=== PATIENT | male | born 1975 | race African-American/Black ===

== ENCOUNTER 2018-02-18 14:00 | Emergency (ER) | payer SELFPAY ==
--- NOTE | 2018-02-18 15:24 | EDPHYS ---
Physician Documentation [facility] Name: Flaco Goins Age: 42 yrs Sex: Male : 1975 Arrival Date: 02/18/2018 Time: 14:04 Bed 12 Private MD: None, None ED Physician Deshawn Peguero HPI: 02/18 15:21 This 42 yrs old Black Male presents to ER via Ambulatory with complaints of Eye rn Swelling. 15:21 The patient is experiencing redness, The patient sustained None. to the left eye. rn Onset: The symptoms/episode began/occurred 2 month(s) ago. Duration: the symptoms are continuous. Severity of symptoms: At their worst the symptoms were very mild in the emergency department the symptoms are unchanged. The patient has not experienced similar symptoms in the past. The patient has not recently seen a physician. Historical: - Allergies: 14:07 No Known Allergies; sv - Home Meds: 14:07 Lisinopril Oral [Active]; sv - PMHx: 14:07 Hypertension; sv - PSHx: 14:07 None; sv - Immunization history:: Adult Immunizations up to date. - Social history:: Smoking status: Patient uses tobacco products, denies chronic smoking, but will smoke occasionally. - Ebola Screening: : No symptoms or risks identified at this time. - Family history:: not pertinent. - Hospitalizations: : No recent hospitalization is reported. ROS: 15:21 Constitutional: Negative for fever, chills, and weight loss, Eyes: + swelling of left rn inner-upper eyelid Exam: 15:21 Constitutional: This is a well developed, well nourished patient who is awake, alert, rn and in no acute distress. Eyes: Pupils equal round and reactive to light, extra-ocular motions intact. Conjunctiva and sclera are non-icteric and not injected. Cornea within normal limits. + hordeolum left upper lid Vital Signs: 14:08 BP 120 / 75; Pulse 70; Resp 18; Temp 97.6; Pulse Ox 99% ; Weight 81.65 kg; Height 6 ft. sv 1 in. (185.42 cm); Pain 2/10; 14:08 Body Mass Index 23.75 (81.65 kg, 185.42 cm) sv MDM: 15:10 Patient medically screened. rn 15:21 Differential diagnosis: hordeolum. Data reviewed: vital signs, nurses notes, and as a rn result, I will discharge patient. Counseling: I had a detailed discussion with the patient and/or guardian regarding: the historical points, exam findings, and any diagnostic results supporting the discharge/admit diagnosis, the need for outpatient follow up, to return to the emergency department if symptoms worsen or persist or if there are any questions or concerns that arise at home. Special discussion: I discussed with the patient/guardian in detail that at this point there is no indication for admission to the hospital. It is understood, however, that if the symptoms persist or worsen the patient needs to return immediately for re-evaluation. Based on the history and exam findings, there is no indication for further emergent testing or inpatient evaluation. I discussed with the patient/guardian the need to see the opthamologist for further evaluation of the symptoms. Administered Medications: No medications were administered Disposition: 02/18/18 15:24 Discharged to Home. Impression: Hordeolum and chalazion. - Condition is Stable. - Discharge Instructions: Chalazion. - Prescriptions for Erythromycin 5 mg/gram (0.5 %) Ophthalmic Ointment - apply 1 ribbon by OPHTHALMIC route every 8 hours; 1 tube. - Medication Reconciliation Form, Thank You Letter, Antibiotic Education, Prescription Opioid Use form. - Follow up: Cat Quezada MD; When: As needed; Reason: Recheck today's complaints, Re-evaluation by your physician. - Problem is an ongoing problem. - Symptoms are unchanged. Signatures: Rubi Mack RN RN sv Nieto, Roman, MD MD rn Barnett, Mark, RN RN mb3 Corrections: (The following items were deleted from the chart) 15:33 15:24 02/18/2018 15:24 Discharged to Home. Impression: Hordeolum and chalazion. mb3 Condition is Stable. Forms are Medication Reconciliation Form, Thank You Letter, Antibiotic Education, Prescription Opioid Use. Follow up: Cat Quezada; When: As needed; Reason: Recheck today's complaints, Re-evaluation by your physician. Problem is an ongoing problem. Symptoms are unchanged. rn
--- NOTE | 2018-02-18 15:24 | ER ---
Nurse's Notes [facility] Name: Flaco Goins Age: 42 yrs Sex: Male : 1975 Arrival Date: 02/18/2018 Time: 14:04 Bed 12 Private MD: None, None Diagnosis: Hordeolum and chalazion Presentation: 02/18 14:06 Presenting complaint: Patient states: left eye "bump" for a few months. Transition of sv care: patient was not received from another setting of care. Onset of symptoms was November 2017. Care prior to arrival: None. 14:06 Method Of Arrival: Ambulatory sv 14:06 Acuity: FITO 5 sv 15:04 Risk Assessment: Do you want to hurt yourself or someone else? Patient reports no mb3 desire to harm self or others. Initial Sepsis Screen: Does the patient meet any 2 criteria? No. Patient's initial sepsis screen is negative. Does the patient have a suspected source of infection? No. Patient's initial sepsis screen is negative. Historical: - Allergies: 14:07 No Known Allergies; sv - Home Meds: 14:07 Lisinopril Oral [Active]; sv - PMHx: 14:07 Hypertension; sv - PSHx: 14:07 None; sv - Immunization history:: Adult Immunizations up to date. - Social history:: Smoking status: Patient uses tobacco products, denies chronic smoking, but will smoke occasionally. - Ebola Screening: : No symptoms or risks identified at this time. - Family history:: not pertinent. - Hospitalizations: : No recent hospitalization is reported. Screenin:04 Abuse screen: Denies threats or abuse. Nutritional screening: No deficits noted. mb3 Tuberculosis screening: No symptoms or risk factors identified. Fall Risk None identified. Assessment: 15:03 General: Appears in no apparent distress. comfortable, Behavior is calm, cooperative, mb3 appropriate for age. Pain: Denies pain. Neuro: No deficits noted. Cardiovascular: No deficits noted. Respiratory: No deficits noted. GI: No deficits noted. No signs and/or symptoms were reported involving the gastrointestinal system. EENT: Eyes left inner eye lid has place on it that is swollen, pt states have had it for over 1 month. Lid(s) w/ stye noted inner aspect of conjunctiva of left eye. Vital Signs: 14:08 BP 120 / 75; Pulse 70; Resp 18; Temp 97.6; Pulse Ox 99% ; Weight 81.65 kg; Height 6 ft. sv 1 in. (185.42 cm); Pain 2/10; 14:08 Body Mass Index 23.75 (81.65 kg, 185.42 cm) sv ED Course: 14:04 Patient arrived in ED. mr 14:04 None, None is Private Physician. mr 14:07 Triage completed. sv 14:08 Arm band placed on right wrist. sv 15:02 Reinier Meza, RAMÍREZ is Primary Nurse. mb3 15:05 Patient has correct armband on for positive identification. mb3 15:10 Deshawn Peguero MD is Attending Physician. rn 15:24 Cat Quezada MD is Referral Physician. rn 15:32 No provider procedures requiring assistance completed. Patient did not have IV access mb3 during this emergency room visit. Administered Medications: No medications were administered Outcome: 15:24 Discharge ordered by MD. rn 15:33 Discharged to home ambulatory. mb3 15:33 Condition: stable 15:33 Discharge instructions given to patient, Instructed on discharge instructions, follow up and referral plans. medication usage, Demonstrated understanding of instructions, follow-up care, medications, Prescriptions given X 1. 15:33 Patient left the ED. mb3 Signatures: Rubi Mack RN RN sv Rivera, Maria mr Deshawn Peguero MD MD rn Barnett, Mark, RN RN mb3
== END 2018-02-18 15:33 | disposition home or self-care (01) ==
LOC: ER 14:00
DX: H00.014 Hordeolum externum left upper eyelid (principal); I10 Essential (primary) hypertension; F17.200 Nicotine dependence, unspecified, uncomplicated
CPT/HCPCS: 99282